=== PATIENT | male | born 1955 | race Caucasian/White ===

== ENCOUNTER 2018-09-03 19:25 | Emergency (ER) | payer OTHER ==
[~2018-09-03] VITALS: Ht 177.8 cm; Wt 95.2 kg
[~2018-09-03 19:25] MED LIST: Norco 5-325 Ta1 EACH PO
[2018-09-03] MEDS ORDERED: METO25ER (20:48)
== END 2018-09-03 21:23 | disposition home or self-care (01) ==
LOC: ER 19:25
DX: S61.213A Laceration without foreign body of left middle finger without damage to nail, initial encounter (principal); W26.0XXA Contact with knife, initial encounter
CPT/HCPCS: 12001; 99282-25